=== PATIENT | female | born 1985 | race Caucasian/White ===

== ENCOUNTER 2016-12-09 11:24 | Inpatient (IN) | payer OTHER ==
[~2016-12-09] VITALS: Ht 160 cm; Wt 94.0 kg
[2016-12-09] VITALS (17 sets, daily range): BP systolic 99–136; BP diastolic 50–80; PULSE 66–77; RESP 14–32; Ht 160 cm; Wt 94.0 kg
[~2016-12-09 11:24] MED LIST: LEVO88TA3 PO
[2016-12-09] MEDS ORDERED: CEFAZOLIN 2 GM/50 ML (PMX) 50 ML IVPB ONE (12:00)
[2016-12-09] MEDS ORDERED: SOD CHLORIDE 0.9% 1,000 ML IV SCH (12:00)
[2016-12-09] MEDS ORDERED: FENTAnyl 50 MCG/ML VIAL ONE (14:13)
[2016-12-09] MEDS ORDERED: ROCURONIUM 50 MG INJ ONE (14:13)
[2016-12-09] MEDS ORDERED: ONDANSETRON 4 MG INJ ONE (14:13)
[2016-12-09] MEDS ORDERED: PROPOFOL 20 ML ONE (14:13)
[2016-12-09] MEDS ORDERED: CEFAZOLIN 1 GM INJ ONE (14:14)
[2016-12-09] MEDS ORDERED: METOCLOPRAMIDE 10 MG INJ ONE (14:14)
[2016-12-09] MEDS ORDERED: SUCCINYLCHOLINE CHLORIDE 100 MG/5 ML SYG IV ONE (14:15)
[2016-12-09] MEDS ORDERED: BUPIVACAINE 0.25% (MPF) 30 ML INJ ONE (14:55)
[2016-12-09] MEDS ORDERED: MEPERIDINE 25 MG INJ IV PRN (15:00)
[2016-12-09] MEDS ORDERED: ONDANSETRON 4 MG INJ IV PRN (15:00)
[2016-12-09] MEDS ORDERED: FENTAnyl 50 MCG/ML VIAL IV PRN ×2 (15:00)
[2016-12-09] MEDS ORDERED: HYDROmorphONE (0.2 MG/ML) 10ML SYG IV PRN ×3 (15:00)
[2016-12-09] MEDS ORDERED: BUPIVACAINE 0.25% (MPF) 30 ML INJ INJ ONE (15:57)
[2016-12-09] MEDS: LACTATED RINGER'S 1,000 ML IV SCH (16:06)
[2016-12-09] MEDS: CEFAZOLIN 2 GM/50 ML (PMX) 50 ML IVPB SCH ×2 (16:30→23:54)
[2016-12-09 16:53] LABS: BASOPHILS % 0.4 % (0.0-2.0); CONDITION 1; EOSINOPHILS % 0.5 % (0.0-7.0); HEMATOCRIT 36.6 % (37.0-47.0); HEMOGLOBIN 12.2 g/dl (12.0-16.0); LYMPHOCYTES # 2.4 10^3/ul (0.8-2.9); LYMPHOCYTES % 26.1 % (15.0-51.0); MEAN CORPUSCULAR HEMOGLOBIN 28.8 pg (29.0-33.0); MEAN CORPUSCULAR HGB CONC 33.3 g/dl (32.0-37.0); MEAN CORPUSCULAR VOLUME 86.7 fl (82.0-101.0); MEAN PLATELET VOLUME 7.8 fl (7.4-10.4); MONOCYTE # 0.5 10^3/ul (0.3-0.9); MONOCYTES % 5.1 % (0.0-11.0); NEUTROPHIL # 6.3 10^3/ul (1.6-7.5); NEUTROPHILS % 67.9 % (39.0-77.0); PLATELET COUNT 267 10^3/UL (140-440); RED BLOOD COUNT 4.22 10^6/ul (4.20-5.40); RED CELL DISTRIBUTION WIDTH 12.2 % (11.5-14.5); UNCORRECTED WBC 9.3 10^3/ul (4.8-10.8); WHITE BLOOD COUNT 9.3 10^3/ul (4.8-10.8)
--- NOTE | 2016-12-09 17:17 | OPR ---
DATE OF OPERATION: 12/09/2016 INDICATION: This is a 31-year-old female with multinodular goiter. She requests surgical repair. Risks, alternatives, benefits, and personnel were discussed with the patient. Potential complicatio ns including but not limited to bleeding, infection, recurrent laryngeal nerve injury were discussed with the patient. The patient expressed understanding and consents to the operation. PREOPERATIVE DIAGNOSIS: Multinodular goiter. POSTOPERATIVE DIAGNOSIS: Multinodular goiter. OPERATION: Left thyroid lobectomy. SURGEON: Miguel Dykes MD SPECIMEN: Left thyroid lobe and isthmus. COMPLICATIONS: None. ANESTHESIA: General. PROCEDURE: The patient was taken to the OR and prepped and draped in the usual sterile fashion. Huertas rgical timeout was performed. IV antibiotics were given. Collar incision was made with a 15 blade. Dissection cautery was carried down to the platysma. Strap muscles were divided in the midline. Initial inspection revealed that the multinodular goiter disease was focused only in the left thyroi d. The right thyroid lobe appears normal. Attention was paid to the left thyroid lobe. Left middl e thyroid vein was ligated with the handheld LigaSure. Superior and inferior poles were dissected a nd divided. The thyroid was mobilized medially. To prevent any injury to recurrent laryngeal nerve s, part of thyroid lobe parenchyma was divided. The isthmus was divided in the midline. Surgical m arkings are a single short for left superior pole, single long for left inferior pole, double long f or anterior. The specimen was handed off. The surgical site was hemostatic. Irrigation was used w ith Valsalva maneuver up to 40 cm. There was no evidence of bleeding. The strap muscles were then reapproximated in the midline with interrupted 3-0 Vicryl. The platysma muscles were reapproximated using interrupted 3-0 Vicryl. Skin was closed using interrupted 3-0 Vicryl and running 4-0 Monocry l. Local anesthesia was injected. Dry dressings were applied. Dictated By: MIGUEL YUSUF/TAE Conf#: [id number] DID#: [id number]
[2016-12-09 17:21] LABS: ALBUMIN 3.4 g/dl (3.3-4.9); POTASSIUM 3.8 mmol/L (3.5-5.1)
[2016-12-09 17:23] LABS: BILIRUBIN,INDIRECT 0.1 mg/dl (0-1.1); BILIRUBIN,TOTAL 0.1 mg/dl (0.2-1.3); CREATININE 0.6 mg/dl (0.44-1.00)
[2016-12-09 17:24] LABS: ALBUMIN/GLOBULIN RATIO 0.97; CALCIUM 8.2 mg/dl (8.4-10.2); TOTAL PROTEIN 6.9 g/dl (6.1-8.1)
--- NOTE | 2016-12-09 19:13 | HP ---
DATE OF ADMISSION: 12/09/2016 CHIEF COMPLAINT AND HISTORY OF PRESENT ILLNESS: The patient is a 31-year-old female with no significant past medical history, is being followed by Dr. Ennis for multinodular goiter. The patient reported that she takes replacement Synthroid. The patient was complaining of pressure symptom. The patient was seen by Dr. Dykes as an outpatient and the patient underwent left thyroid lobectomy. The patient reported that she has had biopsy done and was told that her there is no evidence of malignancy. The patient did have significant postoperative pain and is being admitted for further evaluation and management. No reported chest pain, shortness of breath, no reported headache, dizziness, syncope. No history of sore throat . No history of recent fever or chills. No history of dysuria or hematuria. No history of recent vomiting or diarrhea. Rest review of systems unremarkable. PAST SURGICAL HISTORY: The patient is status post permanent sterilization back in [place] [address] Laird. ALLERGIES: NONE. SOCIAL HISTORY: No social smoking, no history of alcohol. FAMILY HISTORY: Noncontributory. PHYSICAL EXAMINATION: GENERAL: The patient is conscious, awake, alert. VITAL SIGNS: Temperature 97, pulse 67, respirations 19, blood pressure 136/74, O2 sat 100% on room air. HEENT: Conjunctivae and lids are normal. Nose and ears normal externally. Oropharynx examination was deferred due to recent surgery on the neck. No bleeding from the outside the dressing. CHEST: Fairly clear. CARDIOVASCULAR: S1, S2 normal. No murmur. ABDOMEN: Soft, nondistended, nontender. EXTREMITIES: No leg edema. NEUROLOGIC: The patient is awake, alert, fairly oriented with no gross focal deficit. LABORATORY DATA: WBC 9.3, hemoglobin 12.2, platelets 267. Sodium 145, potassium 3.1, BUN 7, creatinine 0.6, glucose 87. Liver enzymes normal. IMPRESSION: Multinodular goiter, status post left thyroid lobectomy. PLAN: The patient admitted on medical floor. The patient will be started on clear liquid diet and will be advanced as tolerated. The patient will be continued on IV fluid, IV cefazolin, IV Dilaudid and p.o. [place]. The patient will have followup labs. Will continue to monitor her from a medical standpoint. The patient has been advised to follow up with Dr. Ennis upon discharge and will resume her Levoxyl at 88 mcg as before for now. Further recommendations will depend on patient's hospital course and recommendation from Dr. Dykes. Dictated By: KEENAN NEGRETE/TAE Conf#: [id number] DID#: [id number] MTDD
[2016-12-09] MEDS: HYDROCODONE/APAP (5/325) TAB PO PRN (19:49)
[2016-12-09] MEDS ORDERED: HYDROmorphONE 1 MG/ML SYG IV PRN (20:00)
[2016-12-09] MEDS ORDERED: morphine 2 MG INJ IV PRN (20:00)
[2016-12-10] MEDS: LACTATED RINGER'S 1,000 ML IV SCH (03:40)
[2016-12-10] MEDS: HYDROCODONE/APAP (5/325) TAB PO PRN (04:46)
[2016-12-10 05:14] LABS: BASOPHILS % 0.3 % (0.0-2.0); HEMATOCRIT 32.1 % (37.0-47.0); HEMOGLOBIN 10.8 g/dl (12.0-16.0); LYMPHOCYTES # 1.6 10^3/ul (0.8-2.9); LYMPHOCYTES % 20.1 % (15.0-51.0); MEAN CORPUSCULAR HGB CONC 33.8 g/dl (32.0-37.0); MEAN CORPUSCULAR VOLUME 85.9 fl (82.0-101.0); MEAN PLATELET VOLUME 7.9 fl (7.4-10.4); MONOCYTE # 0.6 10^3/ul (0.3-0.9); MONOCYTES % 7.1 % (0.0-11.0); NEUTROPHIL # 5.8 10^3/ul (1.6-7.5); NEUTROPHILS % 72.5 % (39.0-77.0); PLATELET COUNT 243 10^3/UL (140-440); RED BLOOD COUNT 3.73 10^6/ul (4.20-5.40); RED CELL DISTRIBUTION WIDTH 12.6 % (11.5-14.5)
[2016-12-10 05:39] VITALS: BP 113/67; PULSE 68; RESP 20
[2016-12-10 06:16] LABS: ALBUMIN 3.1 g/dl (3.3-4.9)
[2016-12-10 06:19] LABS: ALBUMIN/GLOBULIN RATIO 0.93; BILIRUBIN,INDIRECT 0.1 mg/dl (0-1.1); BILIRUBIN,TOTAL 0.1 mg/dl (0.2-1.3); CREATININE 0.61 mg/dl (0.44-1.00); TOTAL PROTEIN 6.4 g/dl (6.1-8.1)
[2016-12-10 06:20] LABS: CALCIUM 7.9 mg/dl (8.4-10.2)
[2016-12-10 06:45] LABS: CONDITION 1
[2016-12-10] MEDS ORDERED: LEVOTHYROXINE 88 MCG TAB PO SCH (07:00)
[2016-12-10 08:03] VITALS: BP 100/63; RESP 18
[2016-12-10] MEDS: CEFAZOLIN 2 GM/50 ML (PMX) 50 ML IVPB SCH (08:35)
--- NOTE | 2016-12-10 08:43 | PN ---
Date/Time of Note Date/Time of Note DATE: 12/10/16 TIME: 08:42 Assessment/Plan VTE Prophylaxis VTE Prophylaxis Intervention: ambulation, SCD's Lines/Catheters IV [facility]from [facility]): Peripheral IV Urinary Cath still in place: No Assessment/Plan Chief Complaint/Hosp Course s/p left thyroid lobectomy Problems: Assessment/Plan d/c home Subjective 24 Hr Interval Summary Free Text/Dictation doing well, has normal voice Exam/Review of Systems Vital Signs Vitals Vital Signs Date Time Temp Pulse Resp B/P Pulse Ox O2 Delivery O2 Flow Rate FiO2 12/10/16 08:03 98.2 60 18 100/63 98 12/10/16 05:39 Room Air Intake and Output 12/09/16 12/09/16 12/10/16 15:00 23:00 07:00 Intake Total 650 ml 1300 ml Output Total 15 ml 700 ml Balance 635 ml 600 ml Exam c/d/i Results Result Diagram: 12/10/16 0445 12/10/16 0445 Results 24 hrs Laboratory Tests Test 12/09/16 16:35 12/10/16 04:45 Alanine Aminotransferase (ALT/SGPT) 27 25 Albumin 3.4 3.1 L Albumin/Globulin Ratio 0.97 0.93 Alkaline Phosphatase 71 58 Anion Gap 16 14 Aspartate Amino Transf (AST/SGOT) 22 21 Basophils # 0.0 0.0 Basophils % 0.4 0.3 Blood Morphology Comment Blood Urea Nitrogen 7 8 Calcium Level 8.2 L 7.9 L Carbon Dioxide Level 25 26 Chloride Level 108 105 Creatinine 0.60 0.61 Direct Bilirubin 0.00 0.00 Eosinophils # 0.0 0.0 Eosinophils % 0.5 0.0 Globulin 3.50 H 3.30 H Glucose Level 87 89 Hematocrit 36.6 L 32.1 L Hemoglobin 12.2 10.8 L Indirect Bilirubin 0.1 0.1 Lymphocytes # 2.4 1.6 Lymphocytes % 26.1 20.1 Mean Corpuscular Hemoglobin 28.8 L 29.0 Mean Corpuscular Hemoglobin Concent 33.3 33.8 Mean Corpuscular Volume 86.7 85.9 Mean Platelet Volume 7.8 7.9 Monocytes # 0.5 0.6 Monocytes % 5.1 7.1 Neutrophils # 6.3 5.8 Neutrophils % 67.9 72.5 Nucleated Red Blood Cells # 0.0 0.0 Nucleated Red Blood Cells % 0.0 0.0 Platelet Count 267 243 Potassium Level 3.8 4.0 Red Blood Count 4.22 3.73 L Red Cell Distribution Width 12.2 12.6 Sodium Level 145 H 141 Total Bilirubin 0.1 L 0.1 L Total Protein 6.9 6.4 White Blood Count 9.3 # 8.0 Medications Medications Current Medications Cefazolin Sodium/ Dextrose (Ancef 2 Gm/50 ml (Pmx)) 50 ml @ 100 mls/hr Q8H IVPB Last administered on 12/10/16 08:35; Admin Dose 100 MLS/HR; Start 12/09/16 at 16:30; Stop 12/10/16 at 16:29 Hydromorphone HCl (Dilaudid) 0.5 mg Q6H PRN IV PAIN LEVEL 6-10; Start 12/09/16 at 20:00 Morphine Sulfate (morphine) 2 mg Q2H PRN IV PAIN LEVEL 6-10; Start 12/09/16 at 20:00 Acetaminophen/ Hydrocodone Bitart 1 tab 1 tab Q6H PRN PO PAIN LEVEL 6-10 Last administered on 12/10/16 04:46; Admin Dose 1 TAB; Start 12/09/16 at 20:00 Lactated Ringer's (Lr) 1,000 ml @ 100 mls/hr Q10H IV Last administered on 03:40; Admin Dose 100 MLS/HR; Start 12/09/16 at 16:06 Linda RODRIGUES Dec 10, 2016 08:43
[2016-12-10] MEDS ORDERED: HYDROCODONE/APAP (5/325) TAB PO ONE (09:30)
--- NOTE | 2016-12-10 11:43 | PDOCDIS ---
Discharge Instructions CONDITION Patient Condition: Stable HOME CARE INSTRUCTIONS: Diet Instructions: RegularSpecial Diet: REGULAR ACTIVITY: Activity Restrictions: Slowly Increase Activity Rest between Activity Avoid heavy lifting Do not operate Machinery Do not operate Power Tool Avoid Heavy Housework Bathing Restrictions: Sponge Bath FOLLOW UP/APPOINTMENTS Appointments FU with primary x 1week FU with surgery as recommended BMP in 1 week. TSH in 1 week. Call 911 or go to the nearest hospital if symptoms Worsen discharge instructions reviewed with the patient patient verbalizes understanding of discharge instructions discussed with Dr. Cruz and staff GLEN SHUKLA Dec 10, 2016 11:43
[2016-12-10] MEDS ORDERED: DOCU-144 PO (11:45)
[2016-12-10] MEDS ORDERED: CALC-143 PO (11:45)
[2016-12-10] MEDS ORDERED: HYDR-3498 PO (11:45)
--- NOTE | 2016-12-10 11:48 | DS ---
Date/Time of Note Date/Time of Note DATE: 12/10/16 TIME: 11:48 Discharge Summary Admission/Discharge Info Admit Date/Time Dec 09, 2016 at 11:47 Discharge Date/Time Patient Condition: Stable Hospital Course s/p left thyroid lobectomy Home Meds Active Scripts Calcium Citrate/Vitamin D (Citracal-Vitamin D 200 MG-250) 1 Each Tablet, 2 EACH PO BID for 30 Days, TAB Prov:GLEN SHUKLA 12/10/16 Docusate Sodium* (Colace*) 100 Mg Capsule, 100 MG PO BID, #30 CAP Prov:GLEN SHUKLA 12/10/16 Hydrocodone Bit-Acetaminophen (Hydrocodone Bit-APAP) 5-325MG Tablet, 1 TAB PO Q6H Y for PAIN LEVEL 6-10, #24 TAB Prov:GLEN SHUKLA 12/10/16 Reported Medications Levothyroxine Sodium* (Levothyroxine Sodium*) 88 Mcg Tablet, 88 MCG PO BEFORE BREAKFAST, #30 TAB 08/13/16 Pending Labs Laboratory Tests Test 12/09/16 16:35 12/10/16 04:45 Alanine Aminotransferase (ALT/SGPT) 27IU/L (13-69) 25IU/L (13-69) Albumin 3.4g/dl (3.3-4.9) 3.1g/dl (3.3-4.9) Albumin/Globulin Ratio 0.97 0.93 Alkaline Phosphatase 71IU/L (42-121) 58IU/L (42-121) Anion Gap 16 (8-16) 14 (8-16) Aspartate Amino Transf (AST/SGOT) 22IU/L (15-46) 21IU/L (15-46) Basophils # 0.010^3/ul (0.0-0.1) 0.010^3/ul (0.0-0.1) Basophils % 0.4% (0.0-2.0) 0.3% (0.0-2.0) Blood Morphology Comment Blood Urea Nitrogen 7mg/dl (7-20) 8mg/dl (7-20) Calcium Level 8.2mg/dl (8.4-10.2) 7.9mg/dl (8.4-10.2) Carbon Dioxide Level 25mmol/L (21-31) 26mmol/L (21-31) Chloride Level 108mmol/L (97-110) 105mmol/L (97-110) Creatinine 0.60mg/dl (0.44-1.00) 0.61mg/dl (0.44-1.00) Direct Bilirubin 0.00mg/dl (0.00-0.20) 0.00mg/dl (0.00-0.20) Eosinophils # 0.010^3/ul (0.0-0.5) 0.010^3/ul (0.0-0.5) Eosinophils % 0.5% (0.0-7.0) 0.0% (0.0-7.0) Globulin 3.50g/dl (1.3-3.2) 3.30g/dl (1.3-3.2) Glucose Level 87mg/dl (70-220) 89mg/dl (70-220) Hematocrit 36.6% (37.0-47.0) 32.1% (37.0-47.0) Hemoglobin 12.2g/dl (12.0-16.0) 10.8g/dl (12.0-16.0) Indirect Bilirubin 0.1mg/dl (0-1.1) 0.1mg/dl (0-1.1) Lymphocytes # 2.410^3/ul (0.8-2.9) 1.610^3/ul (0.8-2.9) Lymphocytes % 26.1% (15.0-51.0) 20.1% (15.0-51.0) Mean Corpuscular Hemoglobin 28.8pg (29.0-33.0) 29.0pg (29.0-33.0) Mean Corpuscular Hemoglobin Concent 33.3g/dl (32.0-37.0) 33.8g/dl (32.0-37.0) Mean Corpuscular Volume 86.7fl (82.0-101.0) 85.9fl (82.0-101.0) Mean Platelet Volume 7.8fl (7.4-10.4) 7.9fl (7.4-10.4) Monocytes # 0.510^3/ul (0.3-0.9) 0.610^3/ul (0.3-0.9) Monocytes % 5.1% (0.0-11.0) 7.1% (0.0-11.0) Neutrophils # 6.310^3/ul (1.6-7.5) 5.810^3/ul (1.6-7.5) Neutrophils % 67.9% (39.0-77.0) 72.5% (39.0-77.0) Nucleated Red Blood Cells # 0.010^3/ul (0.0-0.0) 0.010^3/ul (0.0-0.0) Nucleated Red Blood Cells % 0.0/100WBC (0.0-0.0) 0.0/100WBC (0.0-0.0) Platelet Count 86754^3/UL (140-440) 25223^3/UL (140-440) Potassium Level 3.8mmol/L (3.5-5.1) 4.0mmol/L (3.5-5.1) Red Blood Count 4.2210^6/ul (4.20-5.40) 3.7310^6/ul (4.20-5.40) Red Cell Distribution Width 12.2% (11.5-14.5) 12.6% (11.5-14.5) Sodium Level 145mmol/L (135-144) 141mmol/L (135-144) Total Bilirubin 0.1mg/dl (0.2-1.3) 0.1mg/dl (0.2-1.3) Total Protein 6.9g/dl (6.1-8.1) 6.4g/dl (6.1-8.1) White Blood Count 9.310^3/ul (4.8-10.8) 8.010^3/ul (4.8-10.8) GLEN SHUKLA Dec 10, 2016 11:48
== END 2016-12-10 14:37 | disposition home or self-care (01) | DRG 627 ==
LOC: REC 11:47 → EDSTATUS 15:30 → MS1 17:13
PROVIDERS: ADMIT Internal Medicine; ATTEND Surgery
PROC: 0GTG0ZZ Resection of Left Thyroid Gland Lobe, Open Approach (ICD-10-PCS; principal; 2016-12-09 14:00)
DX: E04.2 Nontoxic multinodular goiter (principal); E66.01 Morbid (severe) obesity due to excess calories; Z68.36 Body mass index [BMI] 36.0-36.9, adult
CPT/HCPCS: 80053; 84703; 85025; 88307; J0330; J0690; J1170; J2405; J2765; J3010; J7120

== ENCOUNTER 2017-04-07 12:02 | Inpatient (IN) | payer OTHER ==
[2017-04-07] VITALS (20 sets, daily range): BP systolic 101–130; BP diastolic 44–75; PULSE 56–72; RESP 16–35; Ht 160 cm; Wt 97.4 kg
[~2017-04-07] VITALS: Ht 160 cm; Wt 97.4 kg
[~2017-04-07 12:02] MED LIST changes: +CALC-143 PO; +CEFAZOLIN 2 GM/50 ML (PMX) 50 ML IVPB SCH; +DOCU-144 PO; +HYDR-3498 PO; +SOD CHLORIDE 0.9% 1,000 ML IV SCH
[2017-04-07] MEDS ORDERED: BUPIVACAINE 0.25% (MPF) 30 ML INJ ONE (14:31)
[2017-04-07] MEDS ORDERED: METOCLOPRAMIDE 10 MG INJ ONE (15:26)
[2017-04-07] MEDS ORDERED: ROCURONIUM 50 MG INJ ONE (15:26)
[2017-04-07] MEDS ORDERED: GLYCOPYRROLATE 0.4 MG INJ ONE (15:26)
[2017-04-07] MEDS ORDERED: MIDAZOLAM 1 MG/ML 2 ML INJ ONE (15:26)
[2017-04-07] MEDS ORDERED: NEOSTIGMINE 3 MG/3 ML SYRINGE ONE (15:26)
[2017-04-07] MEDS ORDERED: PROPOFOL 20 ML ONE (15:26)
[2017-04-07] MEDS ORDERED: EPHEDrine SULFATE 50 MG/5 ML SYG ONE (15:57)
[2017-04-07] MEDS ORDERED: HYDROmorphONE 2 MG/ML SYG ONE (16:27)
[2017-04-07] MEDS ORDERED: ONDANSETRON 4 MG INJ IV PRN ×2 (16:30→19:00)
[2017-04-07] MEDS ORDERED: HYDROmorphONE (0.2 MG/ML) 10ML SYG IV PRN ×3 (16:30)
[2017-04-07] MEDS ORDERED: MEPERIDINE 25 MG INJ IV PRN (16:30)
[2017-04-07] MEDS ORDERED: DIPHENHYDRAMINE 50 MG INJ IV PRN (16:30)
[2017-04-07] MEDS ORDERED: METOCLOPRAMIDE 10 MG INJ IV PRN (16:30)
[2017-04-07] MEDS: LACTATED RINGER'S 1,000 ML IV SCH (16:57)
[2017-04-07] MEDS ORDERED: CEFAZOLIN 2 GM/50 ML (PMX) 50 ML IVPB SCH (17:00)
[2017-04-07] MEDS ORDERED: HYDROCODONE/APAP (5/325) TAB PO PRN (17:00)
[2017-04-07 17:15] LABS: ADD SCAN DIFF NO
[2017-04-07 17:16] LABS: BASOPHILS % 0.2 % (0.0-2.0); EOSINOPHILS # 0.1 10^3/ul (0.0-0.5); EOSINOPHILS % 1.6 % (0.0-7.0); HEMATOCRIT 36.7 % (37.0-47.0); HEMOGLOBIN 11.7 g/dl (12.0-16.0); LYMPHOCYTES % 33.4 % (15.0-51.0); MEAN CORPUSCULAR HEMOGLOBIN 26.6 pg (29.0-33.0); MEAN CORPUSCULAR HGB CONC 31.9 g/dl (32.0-37.0); MEAN CORPUSCULAR VOLUME 83.4 fl (82.0-101.0); MEAN PLATELET VOLUME 9.2 fl (7.4-10.4); MONOCYTE # 0.4 10^3/ul (0.3-0.9); MONOCYTES % 4.9 % (0.0-11.0); NEUTROPHIL # 5.3 10^3/ul (1.6-7.5); NEUTROPHILS % 59.6 % (39.0-77.0); PLATELET COUNT 301 10^3/UL (140-415); RED CELL DISTRIBUTION WIDTH 12.5 % (11.5-14.5); WHITE BLOOD COUNT 8.9 10^3/ul (4.8-10.8)
[2017-04-07 17:43] LABS: ALBUMIN 4.3 g/dl (3.3-4.9); ALBUMIN/GLOBULIN RATIO 1.59; BILIRUBIN,INDIRECT 0.1 mg/dl (0-1.1); BILIRUBIN,TOTAL 0.1 mg/dl (0.2-1.3); CALCIUM 8.1 mg/dl (8.4-10.2)
[2017-04-07 17:50] LABS: CREATININE 0.61 mg/dl (0.44-1.00)
--- NOTE | 2017-04-07 18:04 | OPR ---
DATE OF OPERATION: 04/07/2017 INDICATION: This is a 32-year-old female found to have papillary thyroid cancer. She is undergoing completion thyroidectomy on the right side in order for her to get radioactive iodine for treatment . Risks, alternatives, benefits, and personnel were discussed with the patient. The patient expres sed understanding and consents to the operation. PREOPERATIVE DIAGNOSIS: Papillary thyroid cancer. POSTOPERATIVE DIAGNOSIS: Papillary thyroid cancer. OPERATION: 1. Completion right thyroid lobectomy. 2. Localized adjacent tissue transfer with the use of skin flaps with scar defect of 12 square cm. SURGEON: Miguel Dykes MD SPECIMEN: Right thyroid. COMPLICATIONS: None. ANESTHESIA: General. PROCEDURE: The patient is taken to the OR and prepped and draped in the usual sterile fashion. Cisco gical timeout is performed. IV antibiotics are given. Incision is made over the previous incision. Dissection cautery is carried down to the platysma which is divided. Strap muscles are identified after creating superior and inferior platysmal flaps. After the strap muscles are divided, the mid dle of the thyroid is identified. The superior and inferior poles of the thyroid are isolated and d ivided. The middle thyroidal vein is ligated. Careful attention is paid to avoid the recurrent lar yngeal nerve. The thyroid is resected off the trachea, and specimen with markings of 1 long superio r right pole, 2 long right inferior pole, and single short is anterior. Specimen is sent. Irrigati on is placed into the surgical site. Valsalva maneuver of 40 cm is performed. There is no evidence of bleeding. Strap muscles are reapproximated with interrupted 3-0 Vicryl. Platysma muscle is madelaine pproximated with interrupted 3-0 Vicryl. Skin is closed with interrupted 3-0 Vicryl and running 4-0 Monocryl. Local anesthesia is injected. Dry dressings are applied. Dictated By: MIGUEL YUSUF/TAE Conf#: [id number] DID#: [id number]
[2017-04-07] MEDS: morphine 2 MG INJ IV PRN (18:05)
[2017-04-07] MEDS ORDERED: CALCIUM GLUCONATE 10% 2 GM in SOD CHLORIDE 0.9% 100 ML IVPB ONE (19:00)
[2017-04-07] MEDS: CEFAZOLIN 2 GM/50 ML (PMX) 50 ML IVPB SCH (20:24)
--- NOTE | 2017-04-07 20:47 | HP ---
DATE OF ADMISSION: 04/07/2017 CHIEF COMPLAINT AND HISTORY OF PRESENT ILLNESS: The patient is a 32-year-old female, well known to me from previous admission. The patient was admitted back in December 2016 for left thyroid lobecto my due to multinodular goiter. The patient is being followed by Dr. Ennis from endocrinology [facility]. The patient's pathology came back positive for papillary carcinoma, with multiple foci of c apsular invasion. The patient also was noted to have a background chronic lymphocytic thyroiditis. The patient was seen by Dr. Dykes as an outpatient, was brought into the hospital today and patient u nderwent completion right thyroid lobectomy and localized adjacent tissue transfer with use of skin flaps. The patient is breathing comfortably. Denied any chest pain or shortness of breath. No rec ent history of fever or chills. No history of weakness in any extremity. The patient is slightly s leepy due to recent surgery, but easily arousable and responsive. PAST SURGICAL HISTORY: Status post permanent sterilization back in August 2016. ALLERGIES: NONE. SOCIAL HISTORY: No history of smoking or alcohol abuse. FAMILY HISTORY: Patient's grandfather has had recently been diagnosed with prostate cancer. MEDICATION Prior to admission: 1. Synthroid. 2. Colace. 3. Calcium and vitamin D supplement. 4. Early [place]. PHYSICAL EXAMINATION GENERAL: The patient is lethargic, but arousable and responsive. VITAL SIGNS: Temperature 98, pulse 58, respiratory rate 18, blood pressure 126/57, O2 saturation 95 % on room air. HEENT: Conjunctivae and lids normal. Nose and ears normal. Dressing intact. Oropharynx deferred due to recent surgery. NECK: Deferred due to recent surgery. CHEST: Fairly clear. CARDIOVASCULAR: S1, S2 normal; no murmur. ABDOMEN: Soft, nondistended, nontender. EXTREMITIES: No leg edema. Pedal pulses palpable. SKIN: Without acute rash. NEUROLOGIC: No gross focal deficit. LABORATORY DATA: WBC 8.9, hemoglobin 11.7, platelets 301. Sodium 143, potassium 4, BUN 6, creatini ne 0.6, glucose 94. Liver enzymes normal. IMPRESSION: Papillary carcinoma, status post a completion right thyroid lobectomy. PLAN: Patient admitted on medical floor. Patient will be started on p.o. diet once she is more pallavi ke, alert. Patient will be given IV fluid and will be given IV Zofran for nausea, vomiting, IV morp thu for pain control. We will continue [place] on a p.r.n. basis for moderate pain and Tylenol for m ild pain. The patient will resume her home medications upon discharge and will continue to follow erika Ennis from an endocrine standpoint. Dictated By: KEENAN NEGRETE/TAE Conf#: [id number] DID#: [id number]
[2017-04-07] MEDS: CALCIUM GLUCONATE 10% 2 GM in SOD CHLORIDE 0.9% 100 ML IVPB SCH (21:31)
[2017-04-08] MEDS: CALCIUM GLUCONATE 10% 2 GM in SOD CHLORIDE 0.9% 100 ML IVPB SCH (00:46)
[2017-04-08] MEDS: ACETAMINOPHEN 325 MG TAB PO PRN ×2 (00:51→05:32)
[2017-04-08] MEDS: LACTATED RINGER'S 1,000 ML IV SCH ×2 (02:57→05:25)
[2017-04-08] MEDS: CEFAZOLIN 2 GM/50 ML (PMX) 50 ML IVPB SCH ×2 (05:25→13:22)
[2017-04-08 05:35] VITALS: BP 117/59; PULSE 51; RESP 18
[2017-04-08 05:37] LABS: ADD SCAN DIFF NO
[2017-04-08 05:50] LABS: BASOPHILS % 0.1 % (0.0-2.0); EOSINOPHILS # 0.1 10^3/ul (0.0-0.5); EOSINOPHILS % 0.5 % (0.0-7.0); HEMOGLOBIN 11.1 g/dl (12.0-16.0); LYMPHOCYTES # 1.9 10^3/ul (0.8-2.9); LYMPHOCYTES % 19.6 % (15.0-51.0); MEAN CORPUSCULAR HEMOGLOBIN 26.9 pg (29.0-33.0); MEAN CORPUSCULAR HGB CONC 32.6 g/dl (32.0-37.0); MEAN CORPUSCULAR VOLUME 82.5 fl (82.0-101.0); MEAN PLATELET VOLUME 9.8 fl (7.4-10.4); MONOCYTE # 0.5 10^3/ul (0.3-0.9); MONOCYTES % 4.8 % (0.0-11.0); NEUTROPHILS % 74.7 % (39.0-77.0); PLATELET COUNT 280 10^3/UL (140-415); RED BLOOD COUNT 4.12 10^6/ul (4.20-5.40); RED CELL DISTRIBUTION WIDTH 12.7 % (11.5-14.5); WHITE BLOOD COUNT 9.4 10^3/ul (4.8-10.8)
[2017-04-08 06:09] LABS: ALBUMIN/GLOBULIN RATIO 1.66; BILIRUBIN,INDIRECT 0.2 mg/dl (0-1.1); BILIRUBIN,TOTAL 0.2 mg/dl (0.2-1.3); CALCIUM 9.4 mg/dl (8.4-10.2); CREATININE 0.57 mg/dl (0.44-1.00); POTASSIUM 4.4 mmol/L (3.5-5.1); TOTAL PROTEIN 6.4 g/dl (6.1-8.1)
[2017-04-08 08:41] VITALS: BP 117/67; RESP 16
[2017-04-08] MEDS: morphine 2 MG INJ IV PRN (09:25)
--- NOTE | 2017-04-08 12:11 | PN ---
Date/Time of Note Date/Time of Note DATE: 04/08/17 TIME: 12:10 Assessment/Plan VTE Prophylaxis VTE Prophylaxis Intervention: SCD's Lines/Catheters IV Catheter Type (from Nrs): Peripheral IV Assessment/Plan Chief Complaint/Hosp Course s/p completion thyroidectomy of right lobe for papillary thyroid cancer Problems: Assessment/Plan doing well, no voice changes, no issues with breathing ok to dc home Subjective 24 Hr Interval Summary Free Text/Dictation doing well, no issues, voice normal Exam/Review of Systems Vital Signs Vitals Vital Signs Date Time Temp Pulse Resp B/P Pulse Ox O2 Delivery O2 Flow Rate FiO2 04/08/17 08:41 98.4 54 16 117/67 99 04/08/17 05:35 Room Air Intake and Output 04/07/17 04/07/17 04/08/17 15:00 23:00 07:00 Intake Total 850 ml 770 ml Balance 850 ml 770 ml Exam dry intact dressings Results Result Diagram: 04/08/17 0415 04/08/17 0415 Results 24 hrs Laboratory Tests Test 04/07/17 17:10 04/08/17 04:15 White Blood Count 8.9 9.4 Red Blood Count 4.40 4.12 L Hemoglobin 11.7 L 11.1 L Hematocrit 36.7 L 34.0 L Mean Corpuscular Volume 83.4 82.5 Mean Corpuscular Hemoglobin 26.6 L 26.9 L Mean Corpuscular Hemoglobin Concent 31.9 L 32.6 Red Cell Distribution Width 12.5 12.7 Platelet Count 301 280 Mean Platelet Volume 9.2 9.8 Neutrophils % 59.6 74.7 Lymphocytes % 33.4 19.6 Monocytes % 4.9 4.8 Eosinophils % 1.6 0.5 Basophils % 0.2 0.1 Nucleated Red Blood Cells % 0.0 0.0 Neutrophils # 5.3 7.0 Lymphocytes # 3.0 H 1.9 Monocytes # 0.4 0.5 Eosinophils # 0.1 0.1 Basophils # 0.0 0.0 Nucleated Red Blood Cells # 0.0 0.0 Sodium Level 143 140 Potassium Level 4.0 4.4 Chloride Level 112 H 110 Carbon Dioxide Level 27 27 Anion Gap 8 7 L Blood Urea Nitrogen 6 L 5 L Creatinine 0.61 0.57 Glucose Level 94 84 Calcium Level 8.1 L 9.4 Total Bilirubin 0.1 L 0.2 Direct Bilirubin 0.00 0.00 Indirect Bilirubin 0.1 0.2 Aspartate Amino Transf (AST/SGOT) 20 20 Alanine Aminotransferase (ALT/SGPT) 32 31 Alkaline Phosphatase 79 68 Total Protein 7.0 6.4 Albumin 4.3 4.0 Globulin 2.70 2.40 Albumin/Globulin Ratio 1.59 1.66 Medications Medications Current Medications Morphine Sulfate (morphine) 2 mg Q2H PRN IV PAIN LEVEL 6-10 Last administered on 04/08/17 09:25; Admin Dose 2 MG; Start 04/07/17 at 17:00 Acetaminophen/ Hydrocodone Bitart 1 tab 1 tab Q6H PRN PO PAIN LEVEL 6-10; Start 04/07/17 at 17:00 Lactated Ringer's 1,000 ml @ 100 mls/hr Q10H IV Last administered on 04/08/17 05:25; Admin Dose 100 MLS/HR; Start 04/07/17 at 16:57 Cefazolin Sodium/ Dextrose (Ancef 2 Gm/50 ml (Pmx)) 50 ml @ 100 mls/hr Q8H IVPB Last administered on 04/08/17 05:25; Admin Dose 100 MLS/HR; Start at 21:00; Stop 04/08/17 at 13:29 Ondansetron HCl (Zofran Inj) 4 mg Q6H PRN IV NAUSEA AND/OR VOMITING Last administered on 04/07/17 20:07; Admin Dose 4 MG; Start 04/07/17 at 19:00 Acetaminophen (Tylenol Tab) 650 mg Q4H PRN PO PAIN AND OR ELEVATED TEMP Last administered on 04/08/17 05:32; Admin Dose 650 MG; Start 04/07/17 at 19:00 Linda RODRIGUES Apr 08, 2017 12:11
--- NOTE | 2017-04-08 16:11 | PDOCDIS ---
Discharge Instructions CONDITION Patient Condition: Stable HOME CARE INSTRUCTIONS: Diet Instructions: Regular ACTIVITY: Activity Restrictions: Rest between Activity Avoid Heavy Housework Bathing Restrictions: Sponge Bath FOLLOW UP/APPOINTMENTS Appointments FU with PMD x 1week FU with Surgery x 1 week Call 911 or go to the nearest hospital GLEN Llanes Apr 08, 2017 16:11
[2017-04-08] MEDS ORDERED: PANT40TA3 PO (16:32)
[2017-04-08] MEDS ORDERED: ACET500C5 PO (16:32)
--- NOTE | 2017-04-08 16:33 | DS ---
Date/Time of Note Date/Time of Note DATE: 04/08/17 TIME: 16:33 Discharge Summary Admission/Discharge Info Admit Date/Time April 07, 2017 at 12:02 Discharge Date/Time Hospital Course s/p completion thyroidectomy of right lobe for papillary thyroid cancer Home Meds Active Scripts Acetaminophen* (Tylophen*) 500 Mg Capsule, 1 CAP PO Q6H Y for PAIN AND OR ELEVATED TEMP, #30 CAP Prov:GLEN SHUKLA 04/08/17 Pantoprazole* (Protonix*) 40 Mg Tablet.dr, 40 MG PO DAILY, #20 TAB Prov:GLEN SHKULA 04/08/17 Calcium Citrate/Vitamin D (Citracal-Vitamin D 200 MG-250) 1 Each Tablet, 2 EACH PO BID for 30 Days, TAB Prov:GLEN SHUKLA 12/10/16 Docusate Sodium* (Colace*) 100 Mg Capsule, 100 MG PO BID, #30 CAP Prov:GLEN SHUKLA 12/10/16 Hydrocodone Bit-Acetaminophen (Hydrocodone Bit-APAP) 5-325MG Tablet, 1 TAB PO Q6H Y for PAIN LEVEL 6-10, #24 TAB Prov:GLEN SHUKLA 12/10/16 Reported Medications Levothyroxine Sodium* (Levothyroxine Sodium*) 88 Mcg Tablet, 88 MCG PO BEFORE BREAKFAST, #30 TAB 08/13/16 Primary Care Provider [facility] Pending Labs Laboratory Tests Test 04/07/17 17:10 04/08/17 04:15 White Blood Count 8.910^3/ul (4.8-10.8) 9.410^3/ul (4.8-10.8) Red Blood Count 4.4010^6/ul (4.20-5.40) 4.1210^6/ul (4.20-5.40) Hemoglobin 11.7g/dl (12.0-16.0) 11.1g/dl (12.0-16.0) Hematocrit 36.7% (37.0-47.0) 34.0% (37.0-47.0) Mean Corpuscular Volume 83.4fl (82.0-101.0) 82.5fl (82.0-101.0) Mean Corpuscular Hemoglobin 26.6pg (29.0-33.0) 26.9pg (29.0-33.0) Mean Corpuscular Hemoglobin Concent 31.9g/dl (32.0-37.0) 32.6g/dl (32.0-37.0) Red Cell Distribution Width 12.5% (11.5-14.5) 12.7% (11.5-14.5) Platelet Count 22127^3/UL (140-415) 16705^3/UL (140-415) Mean Platelet Volume 9.2fl (7.4-10.4) 9.8fl (7.4-10.4) Neutrophils % 59.6% (39.0-77.0) 74.7% (39.0-77.0) Lymphocytes % 33.4% (15.0-51.0) 19.6% (15.0-51.0) Monocytes % 4.9% (0.0-11.0) 4.8% (0.0-11.0) Eosinophils % 1.6% (0.0-7.0) 0.5% (0.0-7.0) Basophils % 0.2% (0.0-2.0) 0.1% (0.0-2.0) Nucleated Red Blood Cells % 0.0/100WBC (0.0-0.0) 0.0/100WBC (0.0-0.0) Neutrophils # 5.310^3/ul (1.6-7.5) 7.010^3/ul (1.6-7.5) Lymphocytes # 3.010^3/ul (0.8-2.9) 1.910^3/ul (0.8-2.9) Monocytes # 0.410^3/ul (0.3-0.9) 0.510^3/ul (0.3-0.9) Eosinophils # 0.110^3/ul (0.0-0.5) 0.110^3/ul (0.0-0.5) Basophils # 0.010^3/ul (0.0-0.1) 0.010^3/ul (0.0-0.1) Nucleated Red Blood Cells # 0.010^3/ul (0.0-0.0) 0.010^3/ul (0.0-0.0) Sodium Level 143mmol/L (135-144) 140mmol/L (135-144) Potassium Level 4.0mmol/L (3.5-5.1) 4.4mmol/L (3.5-5.1) Chloride Level 112mmol/L (97-110) 110mmol/L (97-110) Carbon Dioxide Level 27mmol/L (21-31) 27mmol/L (21-31) Anion Gap 8 (8-16) 7 (8-16) Blood Urea Nitrogen 6mg/dl (7-20) 5mg/dl (7-20) Creatinine 0.61mg/dl (0.44-1.00) 0.57mg/dl (0.44-1.00) Glucose Level 94mg/dl (70-220) 84mg/dl (70-220) Calcium Level 8.1mg/dl (8.4-10.2) 9.4mg/dl (8.4-10.2) Total Bilirubin 0.1mg/dl (0.2-1.3) 0.2mg/dl (0.2-1.3) Direct Bilirubin 0.00mg/dl (0.00-0.20) 0.00mg/dl (0.00-0.20) Indirect Bilirubin 0.1mg/dl (0-1.1) 0.2mg/dl (0-1.1) Aspartate Amino Transf (AST/SGOT) 20IU/L (15-46) 20IU/L (15-46) Alanine Aminotransferase (ALT/SGPT) 32IU/L (13-69) 31IU/L (13-69) Alkaline Phosphatase 79IU/L (42-121) 68IU/L (42-121) Total Protein 7.0g/dl (6.1-8.1) 6.4g/dl (6.1-8.1) Albumin 4.3g/dl (3.3-4.9) 4.0g/dl (3.3-4.9) Globulin 2.70g/dl (1.3-3.2) 2.40g/dl (1.3-3.2) Albumin/Globulin Ratio 1.59 1.66 GLEN SHUKLA Apr 08, 2017 16:33
== END 2017-04-08 17:30 | disposition home or self-care (01) | DRG 627 ==
LOC: REC 12:02 → MS1 17:45
PROVIDERS: ADMIT Internal Medicine; ATTEND Surgery
PROC: 0GTH0ZZ Resection of Right Thyroid Gland Lobe, Open Approach (ICD-10-PCS; principal; 2017-04-07 14:30)
DX: C73 Malignant neoplasm of thyroid gland (principal); E06.3 Autoimmune thyroiditis
CPT/HCPCS: 80053; 84703; 85025; 88307; J0610; J0690; J1170; J2250; J2270; J2405; J2710; J2765; J7030; J7120